=== PATIENT | male | born 1985 | race Caucasian/White ===

== ENCOUNTER 2020-05-18 15:34 | Emergency (ER) | payer SELFPAY ==
--- NOTE | 2020-05-18 15:46 | EDM.PDOC ---
ED HPI GENERAL MEDICAL PROBLEM - General Chief Complaint: Head Injury Stated Complaint: LAW ENFORCEMENT Time Seen by Provider: 05/18/20 15:36 Source of Information: Reports: Patient History Limitations: Reports: No Limitations - History of Present Illness INITIAL COMMENTS - FREE TEXT/NARRATIVE: The patient presents by [employer] for a head injury. The patient was placed under arrest and was put into the back of the police vehicle and the patient started hitting his head on the cage. He has a 1cm laceration to the top of the forehead. He has no LOC. His immunizations are up to day. He has no nausea or vomiting. He has no headache. Onset: Sudden Duration: Minutes: Location: Reports: Head Quality: Reports: Sharp Severity: Mild Improves with: Reports: None Worsens with: Reports: None Associated Symptoms: Reports: No Other Symptoms - Related Data Allergies Allergy/AdvReac Type Severity Reaction Status Date / Time No Known Allergies Allergy Verified 05/18/20 15:38 Home Meds: Home Meds . [No Known Home Meds] 05/18/20 [History] Past Medical History - Past Health History Medical/Surgical History: Denies Medical/Surgical History Social & Family History - Tobacco Use Tobacco Use Status *Q: Current Every Day Tobacco User Years of Tobacco use: 10 Packs/Tins Daily: 1 - Recreational Drug Use Recreational Drug Use: Yes Drug Use in Last 12 Months: Yes Recreational Drug Type: Reports: Marijuana/Hashish, Methamphetamine, Other (see below) Other Recreational Drug Type: states he smokes "dabs" Recreational Drug Use Frequency: Daily ED ROS GENERAL - Review of Systems Review Of Systems: See Below Constitutional: Reports: No Symptoms HEENT: Reports: No Symptoms Respiratory: Reports: No Symptoms Cardiovascular: Reports: No Symptoms Endocrine: Reports: No Symptoms GI/Abdominal: Reports: No Symptoms : Reports: No Symptoms Musculoskeletal: Reports: No Symptoms Skin: Reports: Other (lacartion to the upper forehead) ED EXAM, HEAD INJURY - Physical Exam Exam: See Below Exam Limited By: No Limitations General Appearance: Alert, No Apparent Distress Head: Other (1cm laceration to the upper forehead) Ears: Normal External Exam Nose: Normal Inspection Neck: Non-Tender, Normal Alignment, Normal Inspection Respiratory: No Respiratory Distress, Lungs Clear, Normal Breath Sounds Cardiovascular: Regular Rate, Rhythm, No Edema, No Murmur GI/Abdominal Exam: Soft, Non-Tender, No Organomegaly, No Mass Extremities: Normal Inspection ED LACERATION/WOUND & MESFIN PROC - Laceration/Wound Repair Head Lac/wound length in cm: 1 Appearance: Superficial Skin Prep: Saline Exploration/Debridement/Repair: Wound Explored, In a Bloodless Field, Explored to Base Closed with: Dermabond Tetanus Status Addressed: Yes Complications: No Course - Vital Signs Last Recorded V/S: Last Vital Signs Temp 97.2 F 05/18/20 15:36 Pulse 127 H 05/18/20 15:36 Resp 16 05/18/20 15:36 BP 144/91 H 05/18/20 15:36 Pulse Ox 95 05/18/20 15:36 - Re-Assessments/Exams Free Text/Narrative Re-Assessment/Exam: 05/18/20 15:49 I used adhesive to close the wound. Departure - Departure Time of Disposition: 15:50 Disposition: Home, Self-Care 01 Condition: Good Clinical Impression: Laceration of forehead Qualifiers: Encounter type: initial encounter Qualified Code(s): S01.81XA - Laceration without foreign body of other part of head, initial encounter - Discharge Information *PRESCRIPTION DRUG MONITORING PROGRAM REVIEWED*: Not Applicable *COPY OF PRESCRIPTION DRUG MONITORING REPORT IN PATIENT MADI: Not Applicable Forms: ED Department Discharge Additional Instructions: The adhesive will wear off over the next week. Look for any signs of infection such as redness, swelling, drainage and pain. If you see any of these signs please return or see your doctor. You may needs oral antibiotics. A medical screening exam was done and you are medically cleared to go to the [facility]. Sepsis Event Note (ED) - Evaluation Sepsis Screening Result: No Definite Risk - Focused Exam Vital Signs: Vital Signs Temp Pulse Resp BP Pulse Ox 05/18/20 15:36 97.2 F 127 H 16 144/91 H 95
== END 2020-05-18 16:00 | disposition home or self-care (01) ==
LOC: JD.ED 15:34
DX: S01.81XA Laceration without foreign body of other part of head, initial encounter (principal); F17.210 Nicotine dependence, cigarettes, uncomplicated; W22.8XXA Striking against or struck by other objects, initial encounter
CPT/HCPCS: 12001; 12011; 99282; 99283-25

== ENCOUNTER 2020-08-24 11:52 | Emergency (ER) | payer SELFPAY ==
[2020-08-24] MEDS ORDERED: Sodium Chloride 0.9% 10 ML Syringe FLUSH PRN (12:22)
[2020-08-24] MEDS ORDERED: Sodium Chloride 0.9% 1,000 ML IV STA (12:24)
[2020-08-24] MEDS ORDERED: Ondansetron 4 MG/2 ML SDV IVPUSH ONE (12:24)
[2020-08-24] MEDS ORDERED: HYDROmorphone 0.5 MG/0.5 ML Syringe IVPUSH ONE (12:24)
--- NOTE | 2020-08-24 12:34 | EDM.PDOC ---
ED HPI GENERAL MEDICAL PROBLEM - General Chief Complaint: Abdominal Pain Stated Complaint: UPPER ABDOMINAL PAIN Time Seen by Provider: 08/24/20 12:10 Source of Information: Reports: Patient, RN Notes Reviewed History Limitations: Reports: No Limitations - History of Present Illness INITIAL COMMENTS - FREE TEXT/NARRATIVE: Patient is a 35-year-old male presenting to the emergency department with complaints of intermittent "stabbing "abdominal pain. Patient states he gets this pain off and on for a number of years, however over the last couple days it has been more consistent. Pain is worsened by eating. He did have an episode of vomiting yesterday. States he did have a bowel movement yesterday, but he has been unable to go since that time. He does have the urge to defecate but has not been able to. He is not passing much gas. Patient has gallbladder out approximately 1 year ago and states that the pain was similar to that. He has had no known fever, however states he has felt chilled when the pain occurs. abd Pain Score (Numeric/FACES): 10 - Related Data Allergies Allergy/AdvReac Type Severity Reaction Status Date / Time No Known Allergies Allergy Verified 08/24/20 12:01 Home Meds: Home Meds . [No Known Home Meds] 05/18/20 [History] Past Medical History - Past Health History Medical/Surgical History: Denies Medical/Surgical History - Infectious Disease History Infectious Disease History: Reports: Chicken Pox, Hepatitis C - Past Surgical History GI Surgical History: Reports: Cholecystectomy Social & Family History - Tobacco Use Tobacco Use Status *Q: Never Tobacco User - Recreational Drug Use Recreational Drug Use: Yes Drug Use in Last 12 Months: Yes Recreational Drug Type: Reports: Methamphetamine Recreational Drug Use Frequency: Socially ED ROS GENERAL - Review of Systems Review Of Systems: See Below Constitutional: Reports: Chills, Decreased Appetite. Denies: Fever HEENT: Reports: No Symptoms Respiratory: Reports: No Symptoms Cardiovascular: Reports: No Symptoms Endocrine: Reports: No Symptoms GI/Abdominal: Reports: Abdominal Pain (Generalized, intermittent, stabbing), Constipation, Nausea, Vomiting. Denies: Diarrhea ED EXAM, GI/ABD - Physical Exam Exam: See Below Exam Limited By: No Limitations General Appearance: Alert, WD/WN, No Apparent Distress Respiratory/Chest: No Respiratory Distress, Lungs Clear, Normal Breath Sounds, No Accessory Muscle Use, Chest Non-Tender Cardiovascular: Normal Peripheral Pulses, Regular Rate, Rhythm, No Edema, No Gallop, No JVD, No Murmur, No Rub GI/Abdominal Exam: Normal Bowel Sounds, Soft, No Organomegaly, No Distention, No Abnormal Bruit, No Mass, Pelvis Stable, Tender (Generalized tenderness throughout the abdomen.) Neurological: Alert, Oriented, CN II-XII Intact, Normal Cognition, Normal Gait, Normal Reflexes, No Motor/Sensory Deficits Psychiatric: Normal Affect, Normal Mood Skin Exam: Warm, Dry, Intact, Normal Color, No Rash Course - Vital Signs Last Recorded V/S: Last Vital Signs Temp 97.8 F 08/24/20 11:57 Pulse 87 08/24/20 11:57 Resp 20 08/24/20 11:57 BP 141/90 H 08/24/20 11:57 Pulse Ox 100 08/24/20 11:57 - Orders/Labs/Meds Labs: Laboratory Tests 08/24/20 08/24/20 08/24/20 Range/Units 12:30 12:30 12:35 WBC 12.32 H (4.23-9.07) K/mm3 RBC 5.61 (4.63-6.08) M/mm3 Hgb 17.1 D (13.7-17.5) gm/dl Hct 51.4 H (40.1-51.0) % MCV 91.6 (79.0-92.2) fl MCH 30.5 (25.7-32.2) pg MCHC 33.3 (32.2-35.5) g/dl RDW Std Deviation 43.3 (35.1-43.9) fL Plt Count 299 (163-337) K/mm3 MPV 10.0 (9.4-12.3) fl Neut % (Auto) 76.6 H (34.0-67.9) % Lymph % (Auto) 13.9 L (21.8-53.1) % [place] % (Auto) 8.9 (5.3-12.2) % Eos % (Auto) 0.2 L (0.8-7.0) Baso % (Auto) 0.1 (0.1-1.2) % Neut # (Auto) 9.44 H (1.78-5.38) K/mm3 Lymph # (Auto) 1.71 (1.32-3.57) K/mm3 [place] # (Auto) 1.10 H (0.30-0.82) K/mm3 Eos # (Auto) 0.02 L (0.04-0.54) K/mm3 Baso # (Auto) 0.01 (0.01-0.08) K/mm3 Sodium 137 (136-145) mEq/L Potassium 3.7 (3.5-5.1) mEq/L Chloride 102 (98-107) mEq/L Carbon Dioxide 24 (21-32) mEq/L Anion Gap 14.7 (5-15) BUN 14 (7-18) mg/dL Creatinine 1.1 (0.7-1.3) mg/dL Est Cr Clr Drug Dosing 89.30 mL/min Estimated GFR (MDRD) > 60 (>60) mL/min BUN/Creatinine Ratio 12.7 L (14-18) Glucose 146 H (74-106) mg/dL Calcium 8.3 L (8.5-10.1) mg/dL Total Bilirubin 1.0 (0.2-1.0) mg/dL AST 24 (15-37) U/L ALT 58 (16-63) U/L Alkaline Phosphatase 94 (46-116) U/L C-Reactive Protein 2.0 H* (<1.0) mg/dL Total Protein 7.4 (6.4-8.2) g/dl Albumin 3.6 (3.4-5.0) g/dl Globulin 3.8 gm/dL Albumin/Globulin Ratio 1.0 (1-2) Lipase 55 L (73-393) U/L Urine Color Yellow (Yellow) Urine Appearance Clear (Clear) Urine pH 6.0 (5.0-8.0) Ur Specific [place] > or = 1.030 (1.005-1.030) Urine Protein 2+ H (Negative) Urine Glucose (UA) Negative (Negative) Urine Ketones Negative (Negative) Urine Occult Blood Negative (Negative) Urine Nitrite Negative (Negative) Urine Bilirubin 1+ H (Negative) Urine Urobilinogen 2.0 H (0.2-1.0) Ur Leukocyte Esterase Negative (Negative) Urine RBC 0-5 (0-5) /hpf Urine WBC 0-5 (0-5) /hpf Ur Epithelial Cells 0-5 (0-5) /hpf Urine Bacteria Few (FEW) /hpf Urine Mucus Moderate H (FEW) /hpf Meds: Medications Discontinued Medications Generic Name Dose Route Start Last Admin Trade Name Ankit PRN Reason Stop Dose Admin Hydromorphone HCl 0.5 mg 08/24/20 12:24 08/24/20 12:34 Dilaudid IVPUSH 08/24/20 12:25 0.5 mg ONETIME ONE Administration Sodium Chloride 1,000 mls @ 999 mls/hr 08/24/20 12:24 08/24/20 12:34 Normal Saline IV 08/24/20 13:24 999 mls/hr NOW STA Administration Magnesium Citrate 296 ml 08/24/20 13:18 08/24/20 13:24 Citrate Of Magnesia PO 08/24/20 13:19 296 ml ONETIME ONE Administration Ondansetron HCl 4 mg 08/24/20 12:24 08/24/20 12:34 Zofran IVPUSH 08/24/20 12:25 4 mg ONETIME ONE Administration Sodium Chloride 10 ml 08/24/20 12:22 08/24/20 12:30 Saline Flush FLUSH 10 ml ASDIRECTED PRN Administration Keep Vein Open - Re-Assessments/Exams Free Text/Narrative Re-Assessment/Exam: Patient is a 35-year-old male presenting to the emergency department with complaints of intermittent stabbing abdominal pain which he says is often upper abdominal, however he also experiences it throughout other parts of his abdomen. He states he has had this pain off and on in the past. When he was in correction, he states the nurses would give him some type of lemony drink and then he would have a bowel movement and feel better. Is my assumption that this is magnesium citrate that he was receiving. He did have a bowel movement yesterday, however states he has been able unable to have one today. Presentation and exam is suspicious for constipation. I have ordered blood work to include CBC, CMP, CRP, lipase. We will do an abdomen flat and upright x-ray. 08/24/20 13:07 Hematology is grossly unremarkable. Abdomen flat and upright x-ray reviewed by myself and Dr. Murray. Pt has dilated loops of bowel with increased stool in the tranverse colon and rectum. There is no definitive evidence of a bowel obstruction. Recommendation from Dr. Murray is to have him use mag citrate and return of he does not have a BM and pain doesn't resolve. We will provide him with mag citrate. Recommend that he drink the entire bottle and allow a few hours for it to work. If pain does not improve or he does not have a BM, he should return to ER . Pt is in agreement with this plan. He is from [place], but states he will stay in town at his brother's house for the day to see how it goes once he takes the mag citrate and will return if he needs to. Departure - Departure Time of Disposition: 13:15 Disposition: Home, Self-Care 01 Condition: Good Clinical Impression: Abdominal pain - Discharge Information *PRESCRIPTION DRUG MONITORING PROGRAM REVIEWED*: No *COPY OF PRESCRIPTION DRUG MONITORING REPORT IN PATIENT MADI: No Instructions: Constipation, Adult, [id number] Referrals: PCP,None [Primary Care Provider] - Forms: ED Department Discharge Additional Instructions: You were seen in the emergency department today for intermittent abdominal pain which worsens with eating. Blood work was completed and found to be normal. X- ray of your abdomen was completed and did show some areas of increased stool as well as air throughout your colon. You have been sent home with a bottle of magnesium citrate. Recommend that you drink this bottle in its entirety. This should produce a number of bowel movements which should improve your pain. If by this evening, you have not had a bowel movement or if your pain should be worsening or you develop any other symptoms of concern, you should return to the emergency department. Sepsis Event Note (ED) - Evaluation Sepsis Screening Result: No Definite Risk
--- NOTE | 2020-08-24 13:06 | CR ---
Abdomen: Supine and upright views of the abdomen were obtained. Comparison: Prior abdominal x-ray of 09/17/13. Scattered gas within the colon is seen. Mild amount of stool is noted. Slightly prominent small bowel gas is noted. No free air is seen. Prior cholecystectomy is noted. No free air is appreciated. Bony structures are unremarkable. Impression: 1. Several slightly prominent small bowel loops. Difficult to exclude early small bowel obstruction versus change from gastroenteritis. 2. Other findings as noted above which are believed to be incidental. Diagnostic code #3
[2020-08-24] MEDS ORDERED: Magnesium Citrate Solution 296 ML Bottle PO ONE (13:18)
== END 2020-08-24 13:26 | disposition home or self-care (01) ==
LOC: JD.ED 11:52
DX: R10.84 Generalized abdominal pain (principal)
CPT/HCPCS: 36415; 74019; 80053; 81001; 83690; 85025; 86140; 96374; 96375; 99284; A9270; J1170; J2405; J7030

== ENCOUNTER 2021-05-24 22:24 | Emergency (ER) | payer SELFPAY ==
[2021-05-24] MEDS ORDERED: Ketorolac 15 MG/ML SDV IM ONE (23:00)
--- NOTE | 2021-05-25 00:35 | EDM.PDOC ---
ED HPI GENERAL MEDICAL PROBLEM - General Chief Complaint: Abdominal Pain Stated Complaint: LT SIDE PAIN/BACK PAIN Time Seen by Provider: 05/24/21 22:45 Source of Information: Reports: Patient History Limitations: Reports: No Limitations - History of Present Illness INITIAL COMMENTS - FREE TEXT/NARRATIVE: Patient is a 36-year-old male with a past medical history of hepatitis C, IV drug abuse presenting with a chief complaint of left flank pain. Patient reports intermittent symptoms for the last day. Reports the pain is sharp and feels like a saw in his left flank. Radiates to the left side of the abdomen. Nothing seems to make the pain better or worse. It occurs intermittently. He denies any associated fevers, chills, nausea, vomiting, diarrhea, constipation. Reports mild dysuria. No hematuria noted. No prior history of kidney stones or abdominal surgeries besides cholecystectomy. Left Upper Abdominal Pain Score (Numeric/FACES): 10 - Related Data Allergies Allergy/AdvReac Type Severity Reaction Status Date / Time No Known Allergies Allergy Verified 05/24/21 22:40 Home Meds: Home Meds . [No Known Home Meds] 05/18/20 [History] Past Medical History - Past Health History Medical/Surgical History: Denies Medical/Surgical History - Infectious Disease History Infectious Disease History: Reports: Chicken Pox, Hepatitis C - Past Surgical History GI Surgical History: Reports: Cholecystectomy Social & Family History - Tobacco Use Tobacco Use Status *Q: Current Every Day Tobacco User Years of Tobacco use: 15 Packs/Tins Daily: 1 ED ROS GENERAL - Review of Systems Review Of Systems: See Below Free Text/Narrative/Comment: In addition to that documented in the HPI above, the additional ROS was o btained: Constitutional: Denies fevers or chills Eyes: Denies vision changes ENMT: Denies sore throat CV: Denies chest pain Resp: Denies SOB GI: Denies vomiting or diarrhea : Denies painful urination MSK: Denies recent trauma Skin: Denies new rashes Neuro: Denies new numbness or tingling or weakness Endocrine: Denies unexpected weight loss Heme: Denies bleeding disorders ED EXAM, GI/ABD - Physical Exam Exam: See Below Text/Narrative:: I have reviewed the triage vital signs Const: Well nourished, well developed, appears stated age Eyes: Pupils Equal and reactive to light bilaterally, no conjunctival injection HENT: No signs of trauma or swelling, Neck supple without meningismus CV: Regular Rate Rhythm, Warm, well-perfused extremities RESP: Unlabored respiratory effort GI: soft, non-tender, non-distended, no masses MSK: No gross deformities appreciated Skin: Warm, dry. 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 Sensation and motor function of extremities grossly intact. Psych: Appropriate mood and affect. Course - Vital Signs Last Recorded V/S: Last Vital Signs Temp 36.9 C 05/24/21 22:38 Pulse 88 05/24/21 22:38 Resp 18 05/24/21 22:38 BP 168/67 H 05/24/21 22:38 Pulse Ox 100 05/24/21 22:38 - Orders/Labs/Meds Orders: Active Orders 24 hr Category Date Time Status Abdomen Pelvis wo Cont [CT] Stat Exams 05/24/21 23:00 Taken Labs: Laboratory Tests 05/24/21 05/24/21 05/24/21 Range/Units 22:52 22:52 22:52 WBC 8.60 (4.23-9.07) K/mm3 RBC 4.91 (4.63-6.08) M/mm3 Hgb 15.4 D (13.7-17.5) gm/dl Hct 45.6 (40.1-51.0) % MCV 92.9 H (79.0-92.2) fl MCH 31.4 (25.7-32.2) pg MCHC 33.8 (32.2-35.5) g/dl RDW Std Deviation 43.4 (35.1-43.9) fL Plt Count 356 H (163-337) K/mm3 MPV 9.6 (9.4-12.3) fl Neut % (Auto) 42.6 (34.0-67.9) % Lymph % (Auto) 47.0 (21.8-53.1) % [place] % (Auto) 9.3 (5.3-12.2) % Eos % (Auto) 0.7 L (0.8-7.0) Baso % (Auto) 0.2 (0.1-1.2) % Neut # (Auto) 3.66 (1.78-5.38) K/mm3 Lymph # (Auto) 4.04 H (1.32-3.57) K/mm3 [place] # (Auto) 0.80 (0.30-0.82) K/mm3 Eos # (Auto) 0.06 (0.04-0.54) K/mm3 Baso # (Auto) 0.02 (0.01-0.08) K/mm3 Sodium 141 (136-145) mEq/L Potassium 3.8 (3.5-5.1) mEq/L Chloride 103 (98-107) mEq/L Carbon Dioxide 28 (21-32) mEq/L Anion Gap 13.8 (5-15) BUN 12 (7-18) mg/dL Creatinine 1.0 (0.7-1.3) mg/dL Est Cr Clr Drug Dosing 100.70 mL/min Estimated GFR (MDRD) > 60 (>60) mL/min BUN/Creatinine Ratio 12.0 L (14-18) Glucose 78 (70-99) mg/dL Calcium 8.9 (8.5-10.1) mg/dL Total Bilirubin 0.5 (0.2-1.0) mg/dL AST 36 (15-37) U/L ALT 51 (16-63) U/L Alkaline Phosphatase 83 (46-116) U/L Total Protein 7.3 (6.4-8.2) g/dl Albumin 4.1 (3.4-5.0) g/dl Globulin 3.2 gm/dL Albumin/Globulin Ratio 1.3 (1-2) Lipase 61 L (73-393) U/L Urine Color Light yellow (Yellow) Urine Appearance Clear (Clear) Urine pH 7.0 (5.0-8.0) Ur Specific [place] 1.025 (1.005-1.030) Urine Protein Negative (Negative) Urine Glucose (UA) Negative (Negative) Urine Ketones Negative (Negative) Urine Occult Blood Trace-intact H (Negative) Urine Nitrite Negative (Negative) Urine Bilirubin Negative (Negative) Urine Urobilinogen 0.2 (0.2-1.0) Ur Leukocyte Esterase Negative (Negative) Urine RBC 0-5 (0-5) /hpf Urine WBC 0-5 (0-5) /hpf Ur Epithelial Cells Not seen (0-5) /hpf Urine Bacteria Rare (FEW) /hpf Urine Mucus Not seen (FEW) /hpf Meds: Medications Discontinued Medications Generic Name Dose Route Start Last Admin Trade Name Ankit PRN Reason Stop Dose Admin Ketorolac Tromethamine 15 mg 05/24/21 23:00 05/24/21 23:04 Ketorolac 15 Mg/Ml Sdv IM 05/24/21 23:01 15 mg ONETIME ONE Administration Departure - Departure Time of Disposition: 00:34 Disposition: Home, Self-Care 01 Clinical Impression: Abdominal pain - Discharge Information Instructions: Flank Pain, Adult, [id number] Referrals: PCP,None [Primary Care Provider] - Forms: ED Department Discharge Sepsis Event Note (ED) - Evaluation Sepsis Screening Result: No Definite Risk - Focused Exam Vital Signs: Vital Signs Temp Pulse Resp BP Pulse Ox 05/24/21 22:38 36.9 C 88 18 168/67 H 100 - My Orders Last 24 Hours: My Active Orders 05/24/21 23:00 Abdomen Pelvis wo Cont [CT] Stat - Assessment/Plan Last 24 Hours: My Active Orders 05/24/21 23:00 Abdomen Pelvis wo Cont [CT] Stat Assessment:: Patient is 36-year-old male presented to the emergency room with left-sided abdominal pain. Unremarkable ER course. Vital signs remained stable while in the emergency room. Abdominal exam is benign. Differential diagnosis consi dered for this patient include bowel obstruction, perforated peptic ulcer, pyelonephritis, kidney stone, pancreatitis. Work-up in the emergency room was unremarkable. Laboratory studies and CT only demonstrating some slight trace hematuria. At this point, no clear etiology of patient's symptoms have been identified. Its possible patient did pass a kidney stone although does not seem to suggest this on CT scan. No evidence of pyelonephritis. At this point, patient will be discharged with outpatient follow-up. Return precautions discussed as usual. Patient agrees with plan of care.
--- NOTE | 2021-05-25 06:28 | CT ---
CT abdomen and pelvis Technique: Multiple axial sections were obtained from above the dome of the diaphragm inferiorly through the pubic symphysis. Intravenous and oral contrast were not utilized. Study has been performed as a ureteral stone protocol. Comparison: Prior abdominal x-ray of 08/24/20 and limited abdominal ultrasound of 01/22/14. Findings: Right and left kidney show no abnormal calcifications. No ureteral dilatation or ureteral stone is seen. No bladder calculi are seen. Visualized lung bases show nothing acute. Noncontrast appearance of the liver shows no focal abnormality. Surgical clips are seen from prior cholecystectomy. Spleen size is normal. Adrenal glands show no nodule. Pancreas shows no discrete abnormality. Abdominal aorta shows no aneurysm. No retroperitoneal adenopathy or mesenteric abnormalities are seen. No pelvic mass or adenopathy is noted. Appendix is not definitely visualized. Scattered disc space narrowing is seen within the spine. Minimal scattered endplate osteophytes are also noted. Impression: 1. No renal calculi or ureteral calculi are seen. 2. Degenerative change is scattered within the spine. 3. Nothing acute is appreciated on noncontrast CT study of the abdomen and pelvis. Diagnostic code #2 I agree with preliminary report from [facility] finalized on 05/25/21, 1:22 AM ADDICTION THERAPIST, code 1
== END 2021-05-25 00:47 | disposition home or self-care (01) ==
LOC: JD.ED 22:24
DX: R10.9 Unspecified abdominal pain (principal); Z72.0 Tobacco use
CPT/HCPCS: 36415; 74176; 80053; 81001; 83690; 85025; 96372; 99284; J1885

== ENCOUNTER 2024-05-11 11:59 | Emergency (ER) | payer MEDICAID ==
[2024-05-11] MEDS: Sodium Chloride 0.9% 10 ML Syringe FLUSH PRN (12:41)
[2024-05-11] MEDS: Metoclopramide 10 MG/2 ML SDV IVPUSH ONE (12:41)
[2024-05-11] MEDS: HYDROmorphone 1 MG/ML Syringe IVPUSH ONE (12:42)
[2024-05-11] MEDS: Dextrose 5%-0.9% NaCl 1,000 ML IV SCH (12:42)
[2024-05-11 12:58] LABS: BASOPHILS PERCENT AUTO 0.3 % (0.0-1.0); EOSINOPHILS PERCENT AUTO 0.1 % (0.0-6.0); HEMATOCRIT 44.4 % (42.0-52.0); HEMOGLOBIN 15.3 gm/dl (14.0-18.0); IMMATURE GRAN ABSOLUTE AUTO 0.04 K/mm3 (0.00-0.05); IMMATURE GRAN PERCENT AUTO 0.3 % (0.0-0.4); LYMPHOCYTES ABSOLUTE AUTO 2.3 K/mm3 (1.0-4.8); LYMPHOCYTES PERCENT AUTO 18.3 % (24.0-44.0); MEAN CORPUSCULAR HEMOGLOBIN 30.2 pg (28.0-32.0); MEAN CORPUSCULAR HGB CONC 34.5 g/dl (32.0-36.0); MEAN CORPUSCULAR VOLUME 87.7 fl (83.0-99.0); MEAN PLATELET VOLUME 9.7 fl (9.4-12.4); MONOCYTES ABSOLUTE AUTO 0.8 K/mm3 (0.0-0.8); MONOCYTES PERCENT AUTO 6.3 % (0.0-8.0); NEUTROPHILS ABSOLUTE AUTO 9.5 K/mm3 (1.8-7.7); NEUTROPHILS PERCENT AUTO 74.7 % (41.0-71.0); PLATELET COUNT,PLT 341 K/mm3 (150-400); RED BLOOD CELL COUNT 5.06 M/mm3 (4.52-5.90); WHITE BLOOD CELL COUNT,WBC 12.71 K/mm3 (3.9-11.3)
[2024-05-11 13:22] LABS: A/G RATIO 1.1 (1-2); ALBUMIN 4.4 g/dl (3.4-5.0); ANION GAP 15.7 (5-15); C-REACTIVE PROTEIN 0.08 mg/dL (<0.30); CALCIUM 9.5 mg/dL (8.5-10.1); EST CRCL DRUG DOSING (CG) 94.56 mL/min; MAGNESIUM 2.1 mg/dL (1.8-2.4); POTASSIUM,K 3.7 mEq/L (3.5-5.1); PROTEIN TOTAL,TP 8.4 g/dl (6.4-8.2)
[2024-05-11 13:23] LABS: LACTIC ACID 0.9 mmol/L (0.4-2.0)
[2024-05-11] MEDS: Iopamidol 612 MG/ML 100 ML Bottle IVPUSH ONE (13:32)
[2024-05-11 14:16] LABS: APPEARANCE,URINE CLEAR (Clear); BILIRUBIN,URINE NEGATIVE (Negative); COLOR,URINE YELLOW (Yellow); GLUCOSE,URINE NEGATIVE (Negative); KETONES,URINE NEGATIVE (Negative); LEUKOCYTE ESTERASE,URINE NEGATIVE (Negative); NITRITE,URINE NEGATIVE (Negative); OCCULT BLOOD,URINE NEGATIVE (Negative); PROTEIN,URINE 1+ (Negative)
[2024-05-11 14:36] LABS: BACTERIA,URINE FEW /hpf (FEW); MUCUS,URINE MODERATE /hpf (FEW); RBC,URINE 0-5 /hpf (0-5); SQUAMOUS EPITHELIAL CELLS,UR 0-5 /hpf (0-5); WBC,URINE 0-5 /hpf (0-5)
== END 2024-05-11 15:00 | disposition home or self-care (01) ==
LOC: JD.ED 11:59
DX: K52.9 Noninfective gastroenteritis and colitis, unspecified (principal); I10 Essential (primary) hypertension; E78.00 Pure hypercholesterolemia, unspecified; Z90.49 Acquired absence of other specified parts of digestive tract; Z87.891 Personal history of nicotine dependence; Z79.899 Other long term (current) drug therapy
CPT/HCPCS: 36415; 74177; 80053; 81001; 83605; 83690; 83735; 85025; 86140; 96361; 96374; 96375; 99284; J1171; J2765; J3490; J7042; Q9967

== ENCOUNTER 2024-07-16 17:49 | Emergency (ER) | payer MEDICAID ==
[2024-07-16] MEDS ORDERED: Sodium Chloride 0.9% 10 ML Syringe FLUSH PRN (21:06)
[2024-07-16 21:18] LABS: BASOPHILS ABSOLUTE AUTO 0.1 K/mm3 (0.0-0.2); BASOPHILS PERCENT AUTO 0.5 % (0.0-1.0); EOSINOPHILS PERCENT AUTO 0.3 % (0.0-6.0); HEMATOCRIT 48.2 % (42.0-52.0); HEMOGLOBIN 16.8 gm/dl (14.0-18.0); IMMATURE GRAN ABSOLUTE AUTO 0.01 K/mm3 (0.00-0.05); IMMATURE GRAN PERCENT AUTO 0.1 % (0.0-0.4); LYMPHOCYTES PERCENT AUTO 41.2 % (24.0-44.0); MEAN CORPUSCULAR HEMOGLOBIN 30.2 pg (28.0-32.0); MEAN CORPUSCULAR HGB CONC 34.9 g/dl (32.0-36.0); MEAN CORPUSCULAR VOLUME 86.7 fl (83.0-99.0); MEAN PLATELET VOLUME 9.6 fl (9.4-12.4); MONOCYTES ABSOLUTE AUTO 1.2 K/mm3 (0.0-0.8); NEUTROPHILS ABSOLUTE AUTO 4.5 K/mm3 (1.8-7.7); NEUTROPHILS PERCENT AUTO 45.9 % (41.0-71.0); PLATELET COUNT,PLT 335 K/mm3 (150-400); RED BLOOD CELL COUNT 5.56 M/mm3 (4.52-5.90); WHITE BLOOD CELL COUNT,WBC 9.81 K/mm3 (3.9-11.3)
[2024-07-16] MEDS: Sodium Chloride 0.9% 1,000 ML IV STA (21:31)
[2024-07-16] MEDS: Ondansetron 4 MG/2 ML SDV IVPUSH ONE (21:34)
[2024-07-16 21:48] LABS: A/G RATIO 1.1 (1-2); ALBUMIN 4.1 g/dl (3.4-5.0); ANION GAP 14.9 (5-15); BILIRUBIN TOTAL 0.9 mg/dL (0.2-1.0); BUN/CREATININE RATIO 14.6 (14-18); CALCIUM 9.1 mg/dL (8.5-10.1); CREATININE 1.3 mg/dL (0.7-1.3); EST CRCL DRUG DOSING (CG) 70.21 mL/min; POTASSIUM,K 3.9 mEq/L (3.5-5.1)
[2024-07-16] MEDS: Ketorolac 30 MG/ML SDV IVPUSH ONE (22:18)
[2024-07-16] MEDS: Iopamidol 612 MG/ML 100 ML Bottle IVPUSH ONE (22:19)
[2024-07-16] MEDS: HYDROmorphone 0.5 MG/0.5 ML Syringe IVPUSH ONE (23:13)
== END 2024-07-16 23:27 | disposition home or self-care (01) ==
LOC: JD.ED 17:49
DX: R10.12 Left upper quadrant pain (principal); R11.2 Nausea with vomiting, unspecified; I10 Essential (primary) hypertension; E78.00 Pure hypercholesterolemia, unspecified; Z79.899 Other long term (current) drug therapy
CPT/HCPCS: 36415; 74177; 80053; 83690; 85025; 96361; 96374; 96375; 99284; J1885; J2405; J7030; Q9967

== ENCOUNTER 2024-07-25 14:34 | Emergency (ER) | payer MEDICAID ==
[2024-07-25 15:58] LABS: BASOPHILS ABSOLUTE AUTO 0.1 K/mm3 (0.0-0.2); BASOPHILS PERCENT AUTO 0.4 % (0.0-1.0); EOSINOPHILS PERCENT AUTO 0.2 % (0.0-6.0); HEMATOCRIT 47.8 % (42.0-52.0); HEMOGLOBIN 16.5 gm/dl (14.0-18.0); IMMATURE GRAN ABSOLUTE AUTO 0.07 K/mm3 (0.00-0.05); IMMATURE GRAN PERCENT AUTO 0.5 % (0.0-0.4); LYMPHOCYTES ABSOLUTE AUTO 3.1 K/mm3 (1.0-4.8); LYMPHOCYTES PERCENT AUTO 22.1 % (24.0-44.0); MEAN CORPUSCULAR HEMOGLOBIN 30.6 pg (28.0-32.0); MEAN CORPUSCULAR HGB CONC 34.5 g/dl (32.0-36.0); MEAN CORPUSCULAR VOLUME 88.7 fl (83.0-99.0); MEAN PLATELET VOLUME 9.3 fl (9.4-12.4); MONOCYTES ABSOLUTE AUTO 0.7 K/mm3 (0.0-0.8); MONOCYTES PERCENT AUTO 5.2 % (0.0-8.0); NEUTROPHILS PERCENT AUTO 71.6 % (41.0-71.0); PLATELET COUNT,PLT 318 K/mm3 (150-400); RED BLOOD CELL COUNT 5.39 M/mm3 (4.52-5.90); WHITE BLOOD CELL COUNT,WBC 13.96 K/mm3 (3.9-11.3)
[2024-07-25 16:07] LABS: APPEARANCE,URINE CLEAR (Clear); BILIRUBIN,URINE 1+ (Negative); COLOR,URINE YELLOW (Yellow); GLUCOSE,URINE NEGATIVE (Negative); KETONES,URINE 1+ (Negative); LEUKOCYTE ESTERASE,URINE NEGATIVE (Negative); NITRITE,URINE NEGATIVE (Negative); OCCULT BLOOD,URINE NEGATIVE (Negative); PROTEIN,URINE 1+ (Negative); UROBILINOGEN,URINE 0.2 (0.2-1.0)
[2024-07-25] MEDS: Sodium Chloride 0.9% 1,000 ML IV ONE (16:14)
[2024-07-25 16:19] LABS: A/G RATIO 1.2 (1-2); ALBUMIN 4.4 g/dl (3.4-5.0); ANION GAP 15.7 (5-15); BILIRUBIN TOTAL 1.3 mg/dL (0.2-1.0); BUN/CREATININE RATIO 13.6 (14-18); C-REACTIVE PROTEIN 0.16 mg/dL (<0.30); CALCIUM 8.8 mg/dL (8.5-10.1); CREATININE 1.1 mg/dL (0.7-1.3); EST CRCL DRUG DOSING (CG) 85.96 mL/min; POTASSIUM,K 3.7 mEq/L (3.5-5.1); PROTEIN TOTAL,TP 8.1 g/dl (6.4-8.2)
[2024-07-25 16:29] LABS: BACTERIA,URINE FEW /hpf (FEW); MUCUS,URINE MODERATE /hpf (FEW); RBC,URINE 0-5 /hpf (0-5); SQUAMOUS EPITHELIAL CELLS,UR 0-5 /hpf (0-5); WBC,URINE 0-5 /hpf (0-5)
[2024-07-25] MEDS: Sodium Chloride 0.9% 10 ML Syringe FLUSH ONE (16:54)
[2024-07-25] MEDS: Iopamidol 612 MG/ML 100 ML Bottle IVPUSH ONE (16:54)
== END 2024-07-25 17:35 | disposition home or self-care (01) ==
LOC: JD.ED 14:34
DX: K59.00 Constipation, unspecified (principal); I10 Essential (primary) hypertension; E78.00 Pure hypercholesterolemia, unspecified; Z87.891 Personal history of nicotine dependence; Z90.49 Acquired absence of other specified parts of digestive tract; Z79.899 Other long term (current) drug therapy
CPT/HCPCS: 36415; 74177; 76870; 80053; 81001; 83690; 85025; 86140; 93975; 96360; 99284; J7030; Q9967; 99283